=== PATIENT | male | born 1965 | race Caucasian/White ===

== ENCOUNTER 2023-03-08 17:24 | Emergency (ER) | payer BC ==
[~2023-03-08] VITALS: Ht 167.6 cm; Wt 90.7 kg
[2023-03-08 17:35] VITALS: BP_SYST 123; PULSE 80; RESP 18; TEMP 97.2; O2SAT 98
[2023-03-08] MEDS ORDERED: HYDROcodone/ACETAMIN 5-325 MG TAB (NORCO/ VICODIN) PO ONE (17:45)
[2023-03-08] MEDS ORDERED: NABU-140 PO (18:49)
[2023-03-08 19:00] VITALS: BP_SYST 123; PULSE 80; RESP 18; TEMP 97.2; O2SAT 98
== END 2023-03-08 19:00 | disposition home or self-care (01) ==
LOC: SED 17:24
DX: I83.91 Asymptomatic varicose veins of right lower extremity (principal); M79.661 Pain in right lower leg; Z79.899 Other long term (current) drug therapy
CPT/HCPCS: 93971; 99284